=== PATIENT | male | born 1955 ===

== ENCOUNTER → 2020-10-09 12:33 | Outpatient (BNVA) | payer SELFPAY | PROVIDERS: Visit Provider Student in an Organized Health Care Education/Training Program | DX: R53.83 Other fatigue (principal) | CPT/HCPCS: 80053; 81003; 85025; 87086 ==

== ENCOUNTER 2020-10-20 11:08 | Outpatient (CLI) | payer SELFPAY | END 2020-10-20 11:09 | disposition home or self-care (01) | LOC: LAB 11:11 | PROVIDERS: Visit Provider Dermatology | DX: R53.83 Other fatigue (principal) | CPT/HCPCS: 87077; 87086; 87186 ==

== ENCOUNTER → 2020-10-21 09:33 | Outpatient (BNVA) | payer SELFPAY | PROVIDERS: Referring Provider Student in an Organized Health Care Education/Training Program; Visit Provider Dermatology | DX: Z01.89 Encounter for other specified special examinations (principal) | CPT/HCPCS: 82310; 83970 ==

== ENCOUNTER → 2020-11-04 09:09 | Outpatient (BNVA) | payer SELFPAY | PROVIDERS: Visit Provider Student in an Organized Health Care Education/Training Program | DX: N18.9 Chronic kidney disease, unspecified (principal); I10 Essential (primary) hypertension | CPT/HCPCS: 80053; 82652 ==

== ENCOUNTER 2020-12-30 10:33 | Outpatient (CLI) | payer OTHER, SELFPAY ==
[2020-12-31 15:27] LABS: Coronavirus Test Green County Not Detected
== END 2020-12-30 10:34 | disposition home or self-care (01) ==
PROVIDERS: Visit Provider Family Medicine
DX: Z20.822 Contact with and (suspected) exposure to COVID-19 (principal)
CPT/HCPCS: 87635